=== PATIENT | female | born 1975 | race Caucasian/White ===

== ENCOUNTER 2021-05-07 13:56 | Emergency (ER) | payer BC ==
[2021-05-07] MEDS ORDERED: diphenhydrAMINE 25 MG Cap ONE (14:01)
[2021-05-07] MEDS ORDERED: diphenhydrAMINE 50 MG/ML SDV IVPUSH ONE (14:04)
[2021-05-07] MEDS ORDERED: methylPREDNISolone Sodium Succinate 125 MG/2 ML SDV IVPUSH ONE (14:05)
[2021-05-07] MEDS ORDERED: diphenhydrAMINE 25 MG Cap PO ONE (14:05)
[2021-05-07] MEDS ORDERED: EPINEPHrine 1 MG/ML SDV SUBCUT ONE ×2 (14:06→14:52)
[2021-05-07] MEDS ORDERED: Sodium Chloride 0.9% 1,000 ML IV SCH (14:15)
--- NOTE | 2021-05-07 14:15 | EDM.PDOC ---
ED HPI GENERAL MEDICAL PROBLEM - General Chief Complaint: Bite:Animal, Insect Stated Complaint: BEE STING Time Seen by Provider: 05/07/21 14:10 Source of Information: Reports: Patient History Limitations: Reports: No Limitations - History of Present Illness INITIAL COMMENTS - FREE TEXT/NARRATIVE: pt was stung on her left leg. [place]. On arrival she felt very swollen in the throat. She was lite headed and dizzy. Onset: Sudden Duration: Minutes: Location: Reports: Generalized Associated Symptoms: Reports: Diaphoresis, Shortness of Breath, Weakness - Related Data Allergies Allergy/AdvReac Type Severity Reaction Status Date / Time No Known Allergies Allergy Verified 05/07/21 14:09 Home Meds: Home Meds NK [No Known Home Meds] 05/07/21 [History] ED ROS GENERAL - Review of Systems Review Of Systems: See Below Constitutional: Reports: No Symptoms HEENT: Reports: Other ( tongue and throat are markedly swollen. ) Respiratory: Reports: Shortness of Breath Cardiovascular: Reports: No Symptoms Endocrine: Reports: No Symptoms GI/Abdominal: Reports: No Symptoms : Reports: No Symptoms Musculoskeletal: Reports: No Symptoms Skin: Reports: Other (pt is red and covered with hives. ) Neurological: Reports: Dizziness, Tingling ED EXAM, ANIMAL BITE - Physical Exam Exam: See Below Text/Narrative:: pt had a severe bee sting reactiopn when she was 7. She has never been stung since that time. She does not carry a epipen. Exam Limited By: No Limitations General Appearance: Alert, Anxious, Severe Distress, Other (pt has marked swelling in her airway. ) Ears: Normal TMs Nose: Normal Inspection Throat/Mouth: Other (marked swelling of tongue and throat area. ) Head: Atraumatic Neck: Normal Inspection Respiratory/Chest: Decreased Breath Sounds Cardiovascular: Tachycardia GI/Abdominal: Soft, Non-Tender (Female) Exam: Deferred Rectal (Female) Exam: Deferred Back Exam: Normal Inspection Extremities: Normal Inspection, Other ( bee sting on the left leg. ) Neurological: Alert, Oriented, Normal Cognition Course - Vital Signs Last Recorded V/S: Last Vital Signs Temp 36.5 C 05/07/21 14:15 Pulse 71 05/07/21 14:15 Resp 16 05/07/21 14:15 BP 102/48 L 05/07/21 14:15 Pulse Ox 96 08/01/21 14:15 - Orders/Labs/Meds Orders: Active Orders 24 hr Category Date Time Status Sodium Chloride 0.9% [Normal Saline] 1,000 ml Med 05/07/21 14:15 Active IV ASDIRECTED Medication Orders Sodium Chloride (Normal Saline) 1,000 mls @ 999 mls/hr IV ASDIRECTED YINA Last Admin: 05/07/21 14:17 Dose: 999 mls/hr Documented by: LUIGI Meds: Medications Generic Name Dose Route Start Last Admin Trade Name Freq PRN Reason Stop Dose Admin Sodium Chloride 1,000 mls @ 999 mls/hr 05/07/21 14:15 05/07/21 14:17 Normal Saline IV 999 mls/hr ASDIRECTED YINA Administration Discontinued Medications Generic Name Dose Route Start Last Admin Trade Name Freq PRN Reason Stop Dose Admin Diphenhydramine HCl Confirm 05/07/21 14:01 Diphenhydramine 25 Mg Cap Administered 05/07/21 14:02 Dose 25 mg .ROUTE .STK-MED ONE Diphenhydramine HCl 25 mg 05/07/21 14:04 05/07/21 14:18 Diphenhydramine 50 Mg/Ml Sdv IVPUSH 05/07/21 14:05 25 mg ONETIME ONE Administration Diphenhydramine HCl 25 mg 05/07/21 14:05 05/07/21 14:17 Diphenhydramine 25 Mg Cap PO 05/07/21 14:06 25 mg ONETIME ONE Administration Epinephrine HCl 0.3 mg 05/07/21 14:06 05/07/21 14:17 Epinephrine 1 Mg/Ml Sdv SUBCUT 05/07/21 14:07 0.3 mg ONETIME ONE Administration Epinephrine HCl 0.2 mg 05/07/21 14:52 05/07/21 15:00 Epinephrine 1 Mg/Ml Sdv SUBCUT 05/07/21 14:53 0.2 mg ONETIME ONE Administration Methylprednisolone Sodium Succinate 125 mg 05/07/21 14:05 05/07/21 14:17 Methylprednisolone Sodium Succinate 125 Mg/2 Ml Sdv IVPUSH 05/07/21 14:06 125 mg ONETIME ONE Administration - Re-Assessments/Exams Free Text/Narrative Re-Assessment/Exam: 05/07/21 14:59 pt arrived with marked swelling and hives. She was given epi total of .5 sub q and solumedrol 125 iv and benadryl total of 50 mg. She is doing much better. Her throat and papi swelling has gone down. Departure - Departure Time of Disposition: 15:30 Disposition: Home, Self-Care 01 Condition: Fair Clinical Impression: Anaphylactic reaction - Discharge Information Referrals: PCP,Unknown [Primary Care Provider] - Forms: ED Department Discharge Care Plan Goals: always carry a epipen rtc if further problems today. benadryl 50 mg q6h for 3 more doses. Sepsis Event Note (ED) - Focused Exam Vital Signs: Vital Signs Temp Pulse Resp BP Pulse Ox 05/07/21 14:15 36.5 C 71 16 102/48 L 96 05/07/21 14:09 36.5 C 71 16 102/48 L 96 - My Orders Last 24 Hours: My Active Orders 05/07/21 14:15 Sodium Chloride 0.9% [Normal Saline] 1,000 ml IV ASDIRECTED - Assessment/Plan Last 24 Hours: My Active Orders 05/07/21 14:15 Sodium Chloride 0.9% [Normal Saline] 1,000 ml IV ASDIRECTED
== END 2021-05-07 15:58 | disposition home or self-care (01) ==
LOC: JP.ED 13:56
DX: T63.441A Toxic effect of venom of bees, accidental (unintentional), initial encounter (principal)
CPT/HCPCS: 96372; 96374; 96375; 99282; A9270; J0171; J1200; J2930; J7030